=== PATIENT | male | born 1960 ===

== ENCOUNTER → 2017-06-10 | Outpatient (CLI) | payer OTHER ==
--- NOTE | 2017-06-10 09:18 | DIAGNOSTIC IMAGING REPORT ---
LEFT SHOULDER MIN 2 VIEWS CLINICAL HISTORY: 56 years-old Male presenting with LEFT SHOULDER PAIN STATUS post lifting injury. TECHNIQUE: Internal rotation, transscapular Y, and axillary views of the left shoulder were obtained. COMPARISON: None. FINDINGS: No subluxation of the humeral head. Humeral and acromioclavicular joints congruent. The undersurface of the acromion is curved. Mild degenerative changes at the acromioclavicular joint with minimal osteophytosis along the undersurface. No significant degenerative changes in the glenohumeral joint. No acute fractures. Visualized portions of the left hemithorax normal. IMPRESSION: No acute osseous injury of the left shoulder. Electronically signed by: Hamilton Lopez M.D. 06/10/2017 9:17 AM Dictated Date/Time: 06/10/2017 9:15 AM
== END | disposition home or self-care (01) ==
LOC: C.RDSM 09:09
PROVIDERS: ATTEND Internal Medicine
DX: M25.512 Pain in left shoulder (principal)